=== PATIENT | male | born 1995 | race Caucasian/White ===

== ENCOUNTER 2023-12-11 00:56 | Emergency (ER) | payer SELFPAY ==
[2023-12-11] MEDS ORDERED: Lidocaine 1% PF 5 ML VIAL ONE (01:17)
== END 2023-12-11 01:54 | disposition home or self-care (01) ==
LOC: BURERS 00:56
DX: S51.811A Laceration without foreign body of right forearm, initial encounter (principal); W54.0XXA Bitten by dog, initial encounter
CPT/HCPCS: 12001; 99283